=== PATIENT | male | born 1950 | race Two or more races ===

== ENCOUNTER 2016-10-28 18:56 | Emergency (ER) | payer OTHER ==
[~2016-10-28] VITALS: Ht 170.2 cm; Wt 72.6 kg
[2016-10-28 22:21] VITALS: BP 154/77
== END 2016-10-28 23:43 | disposition home or self-care (01) ==
LOC: ER 18:56
DX: S16.1XXA Strain of muscle, fascia and tendon at neck level, initial encounter (principal); R51 Headache; V89.2XXA Person injured in unspecified motor-vehicle accident, traffic, initial encounter; Y93.89 Activity, other specified; Y99.8 Other external cause status; Y92.89 Other specified places as the place of occurrence of the external cause
CPT/HCPCS: 70450; 72125